=== PATIENT | female | born 1950 | race Caucasian/White ===

== ENCOUNTER 2021-12-22 11:38 | Emergency (ER) | payer OTHER ==
[~2021-12-22 11:38] MED LIST: CLONIDINE HCL0.1 MG PO; DEPAKOTE250 MG PO; FLORANEX TABLE1 EACH PO; HYDRALAZINE HCL25 MG PO; LOPRESSOR50 MG PO; MIRALAX17 GM PO; VIMPAT50 MG PO
[2021-12-22 13:02] LABS: BASOPHIL 0.2 % (0-2); EOSINOPHIL 0.2 % (0-7); HCT 26.3 % (37.0-47.0); HGB 8.9 g/dl (12.5-16.0); MCH 29.1 pg (25.0-31.0); MCHC 33.8 g/dL (32.0-36.0); MCV 85.9 fL (78.0-100.0); MONOCYTE 9.9 % (0-12); MPV 9.6 fL (6.0-9.5); NEUTROPHIL 71.9 % (41-80); NRBC 0; PLT 173 K/uL (150-400); RBC 3.06 M/uL (4.20-5.40); RDW 15.8 % (11.5-14.0); WBC 8.6 K/uL (4.0-10.5)
[2021-12-22 13:53] LABS: BILIRUBIN NEGATIVE (NEGATIVE); BLOOD 2+ Ery/uL (NEGATIVE); CLARITY CLEAR (CLEAR); COLOR YELLOW (YELLOW); GLUCOSE (U) 3+ mg/dL (NORMAL); LEUKOCYTES TRACE Leu/uL (NEGATIVE); NITRITE NEGATIVE (NEGATIVE); PROTEIN 2+ mg/dL (NEGATIVE); SPECIFIC GRAVITY 1.025 (1.001-1.030); UROBILINOGEN 0.2 mg/dL (0.2-1.0)
[2021-12-22 13:53] LABS: ALBUMIN 2.4 g/dL (3.4-5.0); BILIRUBIN - TOTAL 0.3 mg/dL (0.2-1.0); BUN/CREAT RATIO (CALC) 34.6 RATIO; CREATININE 0.81 mg/dL (0.51-0.95); GLOBULIN (CALCULATION) 4.1 g/dL; POTASSIUM 5.4 mmol/L (3.5-5.1); TOTAL PROTEIN 6.5 g/dL (6.4-8.2)
[2021-12-22 14:01] LABS: URINARY WBC TNTC; YEAST PRESENT
[2021-12-22 14:02] LABS: BACTERIA TRACE
[2021-12-22 14:32] LABS: CORONAVIRUS 2019 SARS-COV-2 NEGATIVE (NEGATIVE); INFLUENZA A NAA NEGATIVE (NEGATIVE)
[2021-12-22] MEDS ORDERED: CEPHALEXIN500 MG PO (16:32)
== END 2021-12-22 19:02 | disposition home or self-care (01) ==
LOC: FER 11:38
PROVIDERS: Emergency Medicine
DX: N39.0 Urinary tract infection, site not specified (principal); R41.82 Altered mental status, unspecified; E11.9 Type 2 diabetes mellitus without complications; Z20.822 Contact with and (suspected) exposure to COVID-19
CPT/HCPCS: 36415; 70450; 71045; 80053; 81001; 84145; 84484; 85025; 87040; 87088; 93005; J0696; J7040; U0002

== ENCOUNTER 2021-12-30 14:32 | Inpatient (IN) | payer OTHER ==
[~2021-12-30] VITALS: Ht 172.7 cm; Wt 71.8 kg
[~2021-12-30 14:32] MED LIST changes: +CEPHALEXIN500 MG PO
[2021-12-30 16:49] LABS: BASOPHIL 0.4 % (0-2); EOSINOPHIL 1.3 % (0-7); HCT 34.1 % (37.0-47.0); HGB 11.6 g/dl (12.5-16.0); LYMPHOCYTE 33.5 % (15-48); MCH 29.1 pg (25.0-31.0); MCV 85.5 fL (78.0-100.0); MONOCYTE 9.9 % (0-12); MPV 9.1 fL (6.0-9.5); NEUTROPHIL 54.3 % (41-80); NRBC 0; PLT 266 K/uL (150-400); RBC 3.99 M/uL (4.20-5.40); RDW 15.3 % (11.5-14.0); WBC 7.2 K/uL (4.0-10.5)
[2021-12-30 17:30] LABS: INR 1.11 (0.9-1.2); PROTHROMBIN TIME 13.7 SECONDS (11.8-13.4); PTT 32.1 SECONDS (24.4-34.7)
[2021-12-30 17:45] LABS: LACTIC ACID 2.3 mmol/L (0.4-1.9)
[2021-12-30 17:48] LABS: BILIRUBIN - TOTAL 0.3 mg/dL (0.2-1.0); BUN/CREAT RATIO (CALC) 36.4 RATIO; CREATININE 0.77 mg/dL (0.51-0.95); FT4 (FREE T4) 0.8 ng/dL (0.76-1.46); GLOBULIN (CALCULATION) 4.2 g/dL; MAGNESIUM 1.9 mg/dL (1.8-2.4); POTASSIUM 4.4 mmol/L (3.5-5.1); TOTAL PROTEIN 7.2 g/dL (6.4-8.2)
[2021-12-30 18:16] LABS: BILIRUBIN 1+ mg/dL (NEGATIVE); BLOOD 3+ Ery/uL (NEGATIVE); CLARITY CLEAR (CLEAR); COLOR YELLOW (YELLOW); GLUCOSE (U) 3+ mg/dL (NORMAL); LEUKOCYTES NEGATIVE Leu/uL (NEGATIVE); NITRITE NEGATIVE (NEGATIVE); PROTEIN 3+ mg/dL (NEGATIVE); SPECIFIC GRAVITY >=1.030 (1.001-1.030); UROBILINOGEN 0.2 mg/dL (0.2-1.0)
[2021-12-30 18:36] LABS: BACTERIA 2+; URINARY RBC 20-50; URINARY WBC TNTC
[2021-12-30 18:37] LABS: AMORPHOUS URATES CRYSTALS TRACE
[2021-12-30 18:39] LABS: YEAST PRESENT
[2021-12-30] MEDS ORDERED: DIOVAN80 MG PO (23:03)
[2021-12-30] MEDS ORDERED: KEFLEX250 MG PO (23:06)
[2021-12-30] MEDS ORDERED: LOPRESSOR100 MG PO (23:07)
[2021-12-30] MEDS ORDERED: VIMPAT50 MG PO (23:08)
[2021-12-30] MEDS ORDERED: DEPAKOTE250 MG PO (23:09)
[2021-12-30] MEDS ORDERED: SANTYL15 GM TOP (23:10)
[2021-12-31 06:23] LABS: BASOPHIL 0.3 % (0-2); HCT 27.5 % (37.0-47.0); HGB 9.3 g/dl (12.5-16.0); MCH 29.2 pg (25.0-31.0); MCHC 33.8 g/dL (32.0-36.0); MCV 86.5 fL (78.0-100.0); MONOCYTE 12.9 % (0-12); NEUTROPHIL 55.2 % (41-80); NRBC 0; PLT 239 K/uL (150-400); RBC 3.18 M/uL (4.20-5.40); RDW 15.6 % (11.5-14.0); WBC 7.1 K/uL (4.0-10.5)
[2021-12-31 06:43] LABS: BUN/CREAT RATIO (CALC) 34.1 RATIO; CREATININE 0.85 mg/dL (0.51-0.95); POTASSIUM 4.1 mmol/L (3.5-5.1)
[2022-01-01 06:53] LABS: BASOPHIL 0.3 % (0-2); EOSINOPHIL 2.7 % (0-7); HCT 26.2 % (37.0-47.0); HGB 8.5 g/dl (12.5-16.0); LYMPHOCYTE 48.4 % (15-48); MCH 28.6 pg (25.0-31.0); MCHC 32.4 g/dL (32.0-36.0); MCV 88.2 fL (78.0-100.0); MONOCYTE 10.3 % (0-12); MPV 9.3 fL (6.0-9.5); NEUTROPHIL 37.9 % (41-80); NRBC 0; PLT 220 K/uL (150-400); RBC 2.97 M/uL (4.20-5.40); RDW 16.8 % (11.5-14.0); WBC 6.7 K/uL (4.0-10.5)
[2022-01-01 07:19] LABS: BUN/CREAT RATIO (CALC) 33.3 RATIO; CREATININE 1.08 mg/dL (0.51-0.95); POTASSIUM 4.2 mmol/L (3.5-5.1)
--- NOTE | 2022-01-01 14:36 | NUR ---
01/01/22 Met with Ms. Gtz and her daughter, Tabitha Mosley. Ms. Gtz was recently discharged from [facility] due to lack of progress. Ms. Gtz is currently living with her daughter. She has a rw, cane, 3inq, wc and [facility] ordered a hospital bed. [facility] has been notified of admission. - Ms. Mosley is interested in Ms. Gtz returning to a SNF. Her choices are [facility], [facility] and [facility]. Referaal have been sent to each facility.
[2022-01-02 16:33] LABS: BILIRUBIN NEGATIVE (NEGATIVE); BLOOD TRACE-INTACT Ery/uL (NEGATIVE); CLARITY CLEAR (CLEAR); COLOR YELLOW (YELLOW); GLUCOSE (U) TRACE mg/dL (NORMAL); LEUKOCYTES 1+ Leu/uL (NEGATIVE); NITRITE NEGATIVE (NEGATIVE); PROTEIN 1+ mg/dL (NEGATIVE); SPECIFIC GRAVITY 1.025 (1.001-1.030); UROBILINOGEN 0.2 mg/dL (0.2-1.0)
[2022-01-02 16:43] LABS: BACTERIA 1+; URINARY RBC RARE; YEAST PRESENT
[2022-01-03 06:41] LABS: BASOPHIL 0.2 % (0-2); EOSINOPHIL 1.9 % (0-7); HCT 24.9 % (37.0-47.0); HGB 8.3 g/dl (12.5-16.0); LYMPHOCYTE 33.7 % (15-48); MCH 29.5 pg (25.0-31.0); MCHC 33.3 g/dL (32.0-36.0); MCV 88.6 fL (78.0-100.0); MONOCYTE 11.7 % (0-12); MPV 9.3 fL (6.0-9.5); NRBC 0; PLT 193 K/uL (150-400); RBC 2.81 M/uL (4.20-5.40); RDW 16.7 % (11.5-14.0); WBC 6.4 K/uL (4.0-10.5)
[2022-01-03 06:46] LABS: BUN/CREAT RATIO (CALC) 31.6 RATIO; CREATININE 0.95 mg/dL (0.51-0.95); POTASSIUM 3.8 mmol/L (3.5-5.1)
[2022-01-05 07:50] LABS: BASOPHIL 0.1 % (0-2); EOSINOPHIL 0.4 % (0-7); HGB 8.3 g/dl (12.5-16.0); LYMPHOCYTE 30.3 % (15-48); MCH 29.3 pg (25.0-31.0); MCHC 33.2 g/dL (32.0-36.0); MCV 88.3 fL (78.0-100.0); MONOCYTE 15.3 % (0-12); MPV 9.9 fL (6.0-9.5); NEUTROPHIL 53.6 % (41-80); NRBC 0; PLT 187 K/uL (150-400); RBC 2.83 M/uL (4.20-5.40); RDW 16.5 % (11.5-14.0); WBC 6.9 K/uL (4.0-10.5)
[2022-01-05 08:33] LABS: CREATININE 0.82 mg/dL (0.51-0.95)
--- NOTE | 2022-01-05 10:08 | NUR ---
01/05/22 [facility]. [facility] is reviewing. Discussion with Ms. Gtz and her daughter re: expanding the search. Will search in [facility] and [place]. Dtr / patient were informed that [facility] will consider accepting patient back. They will discuss and inform this psychiatric social worker supervisor if they want a referral made to [facility]. [facility] will consider [facility] pending after a financial assessment. - [facility] will visit with patient today.
--- NOTE | 2022-01-05 14:06 | NUR ---
01/05/22 [facility] declined patient financially. Tabitha Mosley, daughter, has requested a call from [facility] to further discuss the insurance policy. Macey Ford agreed to contact Ms. Mosley. - Family does not wish to return to [place]. - [facility] has accept patient pending authorization. Ms. Mosley agreed for [facility] to proceed with auth.
--- NOTE | 2022-01-06 14:13 | NUR ---
01/06/22 [facility] has verified patient darin and have now offered a bed at [facility]. Ms. Mosley, dtr, would like her mother to be admitted to [facility]. [facility]ae[facility] was requested to rescend their auth.
[2022-01-07 05:54] LABS: BASOPHIL 0.2 % (0-2); EOSINOPHIL 1.7 % (0-7); HCT 23.6 % (37.0-47.0); HGB 7.8 g/dl (12.5-16.0); LYMPHOCYTE 36.1 % (15-48); MCH 29.1 pg (25.0-31.0); MCHC 33.1 g/dL (32.0-36.0); MCV 88.1 fL (78.0-100.0); MONOCYTE 11.8 % (0-12); MPV 9.7 fL (6.0-9.5); NEUTROPHIL 49.8 % (41-80); NRBC 0; PLT 180 K/uL (150-400); RBC 2.68 M/uL (4.20-5.40); RDW 16.3 % (11.5-14.0); WBC 5.2 K/uL (4.0-10.5)
[2022-01-07 07:00] LABS: BUN/CREAT RATIO (CALC) 30.5 RATIO; CREATININE 1.05 mg/dL (0.51-0.95)
--- NOTE | 2022-01-07 12:14 | NUR ---
01/07/22 Insurance has requested a peer to peer. Dr. Kessler was informed.
--- NOTE | 2022-01-08 11:33 | NUR ---
01/08/22 Insurance denied SNF admission to [facility]. Macey Mosley, daughter, has made an appeal. She is being discharged home with A who was current. A referral was made to [facility] for delivery of a hospital bed. report given to MS Madelin Noland RN.
[2022-01-08] MEDS ORDERED: OZEMPIC0.25 MG/0. SC (12:35)
[2022-01-08] MEDS ORDERED: GLUCOTROL5 MG PO (12:35)
[2022-01-08] MEDS ORDERED: TRIAMTERENE-HC1 EAC1 PO (12:35)
--- NOTE | 2022-01-12 09:44 | NUR ---
01/12/22 The appeal for authorization for admission to [facility] was won. Ms. Gtz was admitted from home to [facility] on 01/11/22 per Macey Ford.
== END 2022-01-08 16:13 | disposition home health service (06) | DRG 871 ==
LOC: FER 14:32 → FMS 20:23
PROVIDERS: Emergency Medicine; Internal Medicine; Nurse Practitioner; ADMIT Allergy & Immunology Allergy
DX: A41.9 Sepsis, unspecified organism (principal); G92.9 Unspecified toxic encephalopathy; B37.41 Candidal cystitis and urethritis; I16.1 Hypertensive emergency; G40.909 Epilepsy, unspecified, not intractable, without status epilepticus; M79.641 Pain in right hand; M79.7 Fibromyalgia; K21.9 Gastro-esophageal reflux disease without esophagitis; E11.42 Type 2 diabetes mellitus with diabetic polyneuropathy; Z20.822 Contact with and (suspected) exposure to COVID-19; E11.621 Type 2 diabetes mellitus with foot ulcer; L97.529 Non-pressure chronic ulcer of other part of left foot with unspecified severity; G83.9 Paralytic syndrome, unspecified; E78.5 Hyperlipidemia, unspecified; T42.6X5A Adverse effect of other antiepileptic and sedative-hypnotic drugs, initial encounter; L89.151 Pressure ulcer of sacral region, stage 1; Z90.710 Acquired absence of both cervix and uterus; Z98.49 Cataract extraction status, unspecified eye; Z88.2 Allergy status to sulfonamides; Z88.1 Allergy status to other antibiotic agents; Z88.8 Allergy status to other drugs, medicaments and biological substances; G89.29 Other chronic pain; Z98.890 Other specified postprocedural states; Z87.820 Personal history of traumatic brain injury; Z80.8 Family history of malignant neoplasm of other organs or systems
CPT/HCPCS: 36415; 70450; 71045; 73130; 80048; 80053; 80164; 81001; 82962; 83036; 83605; 83690; 83735; 83880; 84145; 84439; 84443; 84484; 85025; 85610; 85730; 87076; 87088; 93005; 93922; 93971; 94010; 94760; 94762; 97110; 97162; 97166; 97530; 97530-GP; 97535; G0378; J0360; J0696; J2543; J3490; J7030; J7120; U0002

== ENCOUNTER 2022-01-21 12:44 | Emergency (ER) | payer OTHER ==
[~2022-01-21 12:44] MED LIST changes: +DIOVAN80 MG PO; +GLUCOTROL5 MG PO; +KEFLEX250 MG PO; +LOPRESSOR100 MG PO; +OZEMPIC0.25 MG/0. SC; +SANTYL15 GM TOP; +TRIAMTERENE-HC1 EAC1 PO
[2022-01-21 14:25] LABS: BASOPHIL 0.3 % (0-2); EOSINOPHIL 0.6 % (0-7); HCT 29.9 % (37.0-47.0); HGB 10.1 g/dl (12.5-16.0); LYMPHOCYTE 28.3 % (15-48); MCH 29.4 pg (25.0-31.0); MCHC 33.8 g/dL (32.0-36.0); MCV 86.9 fL (78.0-100.0); MONOCYTE 5.6 % (0-12); MPV 9.6 fL (6.0-9.5); NEUTROPHIL 64.8 % (41-80); NRBC 0; PLT 147 K/uL (150-400); RBC 3.44 M/uL (4.20-5.40); RDW 15.7 % (11.5-14.0); WBC 9.3 K/uL (4.0-10.5)
[2022-01-21 14:53] LABS: ALBUMIN 2.7 g/dL (3.4-5.0); BILIRUBIN - TOTAL 0.2 mg/dL (0.2-1.0); BUN/CREAT RATIO (CALC) 46.4 RATIO; CREATININE 1.12 mg/dL (0.51-0.95); GLOBULIN (CALCULATION) 4.5 g/dL; POTASSIUM 4.4 mmol/L (3.5-5.1); TOTAL PROTEIN 7.2 g/dL (6.4-8.2)
[2022-01-21 15:26] LABS: BILIRUBIN NEGATIVE (NEGATIVE); BLOOD 2+ Ery/uL (NEGATIVE); CLARITY CLEAR (CLEAR); COLOR YELLOW (YELLOW); GLUCOSE (U) NORMAL (NORMAL); LEUKOCYTES 2+ Leu/uL (NEGATIVE); NITRITE POSITIVE (NEGATIVE); PROTEIN 1+ mg/dL (NEGATIVE); SPECIFIC GRAVITY 1.025 (1.001-1.030); UROBILINOGEN 0.2 mg/dL (0.2-1.0); pH 5.5 (5.0-9.0)
[2022-01-21 15:37] LABS: BACTERIA 4+; URINARY WBC 20-50
[2022-01-21 15:38] LABS: SQUAMOUS EPITHELIAL CELLS RARE
== END 2022-01-21 16:46 | disposition home or self-care (01) ==
LOC: FER 12:44
PROVIDERS: Emergency Medicine
DX: G40.909 Epilepsy, unspecified, not intractable, without status epilepticus (principal); E86.0 Dehydration; N18.9 Chronic kidney disease, unspecified
CPT/HCPCS: 36415; 70450; 71045; 80053; 81001; 82553; 84443; 84484; 85025; J7030